=== PATIENT | male | born 1975 | race American Indian/Alaskan Native ===

== ENCOUNTER 2017-08-21 18:23 | Emergency (ER) | payer OTHER ==
[2017-08-21 18:44] VITALS: BMI 20.3
[2017-08-21 18:47] VITALS: RESP 18
[2017-08-21] MEDS ORDERED: Multivitamin (MVI) 10 ML, Thiamine 100 MG, Folic Acid 1 MG in Dextrose 5% In Water 1,00... IV ONE (19:23)
--- NOTE | 2017-08-21 19:23 | ED PDOC ---
"Arrival/HPI - General Chief Complaint: Alcohol Ingestion Time Seen by Provider: 08/21/17 19:19 Historian: Patient - History of Present Illness Narrative History of Present Illness (Text): 08/21/17 19:21 39 y/o male, limited HPI can be obtained, as the patient is agitated, +etoh on breath, biba, here at the ER which he was bring to the ER for etoh intoxication. Pt. is here in the ER, agitated, walking around and cursing at the staff, stated that he is fine, doesn't want to stay but with etoh on breath , no chest pain or shortness, no discomfort, no other medical or psychological complaints. Past Medical History - Provider Review Nursing Documentation Reviewed: Yes - Infectious Disease Hx of Infectious Diseases: None - Cardiac Hx Hypertension: Yes - Psychiatric Hx Substance Use: No Family/Social History - Physician Review Nursing Documentation Reviewed: Yes Family/Social History: Unknown Family HX Smoking Status: Current Some Days Smoker Hx Alcohol Use: Yes Hx Substance Use: No Allergies/Home Meds Allergies/Adverse Reactions: Allergies No Known Allergies Allergy (Verified 08/21/17 18:44) Home Medications: Home Meds Medication Instructions Recorded Confirmed Unobtainable 08/21/17 08/21/17 Review of Systems - Review of Systems Systems not reviewed;Unavailable: Other (intoxicated and uncooperative.) Physical Exam - Physical Exam Physical Exam Limitations: Intoxication Vital Signs Reviewed: Yes Vital Signs Temp Pulse Resp BP Pulse Ox 08/21/17 23:30 72 18 145/87 99 08/21/17 18:23 98.6 F 110 H 18 131/80 98 Temperature: Afebrile Blood Pressure: Normal Pulse: Tachycardic Respiratory Rate: Normal Appearance: Positive for: Well-Appearing, Non-Toxic, Comfortable - Systems Exam Head: Present: Atraumatic, Normocephalic Pupils: Present: PERRL, Other (+pinpoint pupils) Extroacular Muscles: Present: EOMI Conjunctiva: Present: Normal Mouth: Present: Moist Mucous Membranes Neck: Present: Normal Range of Motion, Lymphadenopathy, Trachea Midline. No: Meningeal Signs, MIDLINE TENDERNESS, Paraspinal Tenderness Respiratory/Chest: Present: Clear to Auscultation, Good Air Exchange. No: Respiratory Distress, Accessory Muscle Use, Wheezes, Decreased Breath Sounds, Rales, Retracting, Rhonchi, Tachypneic, Tender to Palpation Cardiovascular: Present: Regular Rate and Rhythm, Normal S1, S2. No: Murmurs Abdomen: Present: Normal Bowel Sounds. No: Tenderness, Distention, Peritoneal Signs, Rebound, Guarding Back: Present: Normal Inspection. No: CVA Tenderness, Midline Tenderness, Paraspinal Tenderness Upper Extremity: Present: Normal Inspection, Normal ROM. No: Cyanosis, Edema, Deformity Lower Extremity: Present: Normal Inspection, Normal ROM. No: Edema, Deformity Neurological: Present: GCS=15, Speech Normal, Motor Func Grossly Intact Skin: Present: Warm, Dry, Normal Color. No: Rashes Psychiatric: Present: Alert, Oriented x 3, Normal Insight, Normal Concentration Medical Decision Making ED Course and Treatment: 08/21/17 19:22 -Pt. is agitated, attacking ER staffs, ativan and haldol ordered. -Labs/CT head -Observe and reassess 08/22/17 00:50 -Pt. was agitated, therefore geodon IM ordered, sleeping now, easily arousable. -Labs are non-significant -Pending CT head. 08/22/17 02:23 -CT head show no acute findings. 08/22/17 03:21 -Case discussed and endorsed to the current ER attending Dr. Delio Olmos for the follow up care including any pending labs/radiology studies for the final dispo for the patient. - Lab Interpretations Lab Results: 08/21/17 21:41 08/21/17 21:41 Lab Results 08/21/17 21:41: WBC 7.4, RBC 4.48, Hgb 13.5 L, Hct 40.3 L, MCV 90.0, MCH 30.1, MCHC 33.5, RDW 15.8 H, Plt Count 319, MPV 11.1 H, Gran % 64.6, Lymph % (Auto) 27.0, [place] % (Auto) 6.9 H, Eos % (Auto) 0.8 L, Baso % (Auto) 0.7, Gran # 4.76, Lymph # 2.0, [place] # 0.5, Eos # 0.1, Baso # 0.05 08/21/17 21:41: Sodium 149 H, Potassium 4.1, Chloride 108 H, Carbon Dioxide 25, Anion Gap 21 H, BUN 7, Creatinine 0.8, Est GFR ( Amer) > 60, Est GFR (Non -Af Amer) > 60, Random Glucose 96, Calcium 9.6, Magnesium 2.2, Total Bilirubin 0.3, AST 52, ALT 80 H, Alkaline Phosphatase 94, Total Creatine Kinase 420 H, CK- MB (CK-2) 2.2, CK-MB (CK-2) % Cancelled, Total Protein 8.8 H, Albumin 4.9 H, Globulin 3.9, Albumin/Globulin Ratio 1.3 - RAD Interpretation Radiology Orders: 08/21/17 19:23 HEAD W/O CONTRAST [CT] Stat FINDINGS: Brain: Ventricles are normal in size and configuration. There is no midline shift. There is mild prominence of sulci and gyri. There are no intra-axial or extra-axial mass lesions or areas of hemorrhage. There are no abnormal fluid collections. Garcia-white differentiation is maintained. Ventricles: See above. Bones: Cranial vault is intact. Soft tissues: unremarkable Sinuses: There is mucoperiosteal thickening in the left maxillary sinus Ears and mastoids: Middle ears and mastoids are unremarkable Orbits: Orbital contents are unremarkable. IMPRESSION: No acute intracranial abnormality Thank you for allowing us to participate in the care of your patient. JOSHUA MORENO | Final Radiology Report CONFIDENTIALITY STATEMENT This report is intended only for use by the referring physician, and only in accordance with law. If you received this in error, call [phone]. Page 2 of 2 Dictated and Authenticated by: Armida Gastelum MD 08/22/2017 2:03 AM Eastern Time ([place] & [place]) Strip Cutter: Radiologist - Medication Orders Current Medication Orders: Discontinued Medications Haloperidol Lactate (Haldol) 5 mg IM STAT STA PRN Reason: Protocol Stop: 08/21/17 19:20 Last Admin: 08/21/17 19:53 Dose: 5 mg IM Administration Charges Document 08/21/17 19:53 SS (Rec: 08/21/17 19:53 SS [id number]) Injection Site MAR Injection Site Left Deltoid Charges for Administration # of IM Administrations 1 Multivitamins/Vitamin C 10 ml/Thiamine HCl 100 mg/ Folic Acid 1 mg/ Dextrose 1, 011.2 mls @ 1,000 mls/hr IV .Q1H1M ONE Stop: 08/21/17 20:23 Last Admin: 08/21/17 21:12 Dose: 1,000 mls/hr eMAR Start Stop Document 08/21/17 21:12 SS (Rec: 08/21/17 21:13 SS [id number]) Intravenous Solution Start Date 08/21/17 Start Time 21:12 End Date 08/21/17 End time 22:13 Total Infusion Time 61 Lorazepam (Ativan) 2 mg IM ONCE ONE PRN Reason: Protocol Stop: 08/21/17 19:20 Last Admin: 08/21/17 19:53 Dose: 2 mg IM Administration Charges Document 08/21/17 19:53 SS (Rec: 08/21/17 19:53 SS [id number]) Injection Site MAR Injection Site Left Deltoid Charges for Administration # of IM Administrations 1 Ziprasidone (Geodon Inj) 20 mg IM STAT STA PRN Reason: Protocol Stop: 08/21/17 23:26 Last Admin: 08/21/17 23:39 Dose: 20 mg IM Administration Charges Document 08/21/17 23:39 ND (Rec: 08/21/17 23:39 ND [facility] [id number]) Injection Site MAR Injection Site Left Deltoid Charges for Administration # of IM Administrations 1 - PA / STREET ENGINEER / Resident Statement MD/DO has reviewed & agrees with the documentation as recorded. Disposition/Present on Arrival - Present on Arrival Any Indicators Present on Arrival: No History of DVT/PE: No History of Uncontrolled Diabetes: No Urinary Catheter: No History of Decub. Ulcer: No History Surgical Site Infection Following: None - Disposition Have Diagnosis and Disposition been Completed?: Yes Diagnosis: Alcohol intoxication Disposition Time: 03:22 Patient Problems: Current Active Problems Problem Status Onset Alcohol intoxication Acute Forms: [employer] ([employer])"
[2017-08-21 21:48] LABS: BASO # 0.05 K/mm3 (0.0-2.0); BASO % 0.7 % (0.0-3.0); EOS # 0.1 (0.0-0.7); EOS % 0.8 % (1.5-5.0); GRAN # 4.76 (1.4-6.5); GRAN % 64.6 % (50.0-68.0); HEMOGLOBIN 13.5 g/dL (14.0-18.0); MEAN CORPUSCULAR HEMOGLOBIN 30.1 pg (25.0-35.0); MEAN CORPUSCULAR HGB CONC 33.5 g/dl (31.0-37.0); MEAN PLATELET VOLUME 11.1 fl (7.0-11.0); MONO # 0.5 (0.1-0.6); MONO % 6.9 % (1.0-6.0); RBC 4.48 10^6/uL (3.5-6.1); RED CELL DISTRIBUTION WIDTH 15.8 % (11.5-14.5); WHITE BLOOD COUNT 7.4 10^3/ul (4.5-11.0)
[2017-08-21 22:17] LABS: ALB/GLOB RATIO 1.3 (1.1-1.8); ALBUMIN 4.9 g/dL (3.0-4.8); ALT/SGPT 80 U/L (7-56); AST/SGOT 52 U/L (17-59); BLOOD UREA NITROGEN 7 mg/dL (7-21); CALCIUM 9.6 mg/dL (8.4-10.5); GFR AFRICAN-AMERICAN > 60; GFR NON-AFRICAN AMERICAN > 60; MAGNESIUM 2.2 mg/dL (1.7-2.2)
[2017-08-21 22:31] LABS: CK-MB 2.2 ng/mL (0.0-3.6)
--- NOTE | 2017-08-22 02:03 | CT ---
EXAM: CT Head Without Intravenous Contrast EXAM DATE/TIME: 08/21/2017 7:23 PM CLINICAL HISTORY: 42 years old, male; Signs and symptoms; Syncope and collapse; Additional info: ETOH, agitated, fall? TECHNIQUE: Axial computed tomography images of the head/brain without intravenous contrast. All CT scans at this facility use one or more dose reduction techniques, viz.: automated exposure control; ma/kV adjustment per patient size (including targeted exams where dose is matched to indication; i.e. head); or iterative reconstruction technique. Coronal and sagittal reformatted images were created and reviewed. COMPARISON: There are no prior studies for comparison. FINDINGS: Brain: Ventricles are normal in size and configuration. There is no midline shift. There is mild prominence of sulci and gyri. There are no intra-axial or extra-axial mass lesions or areas of hemorrhage. There are no abnormal fluid collections. Garcia-white differentiation is maintained. Ventricles: See above. Bones: Cranial vault is intact. Soft tissues: unremarkable Sinuses: There is mucoperiosteal thickening in the left maxillary sinus Ears and mastoids: Middle ears and mastoids are unremarkable Orbits: Orbital contents are unremarkable. IMPRESSION: No acute intracranial abnormality
[2017-08-22 08:22] VITALS: BP 123/77; PULSE 92; TEMP 98.5; O2SAT 97
--- NOTE | 2017-08-22 09:20 | ED PDOC ---
Physical Exam Vital Signs Reviewed: Yes Vital Signs Temp Pulse Resp BP Pulse Ox 08/22/17 08:20 98.5 F 92 H 18 123/77 97 08/22/17 06:39 100 H 18 125/71 95 08/21/17 23:30 72 18 145/87 99 08/21/17 18:23 98.6 F 110 H 18 131/80 98 Temperature: Afebrile Blood Pressure: Normal Pulse: Regular Respiratory Rate: Normal Appearance: Positive for: Well-Appearing Pain Distress: None Mental Status: Positive for: Alert and Oriented X 3 - Systems Exam Psychiatric: Present: Alert, Oriented x 3. No: Suicidal Ideation, Homicidal Ideation, Other (no ataxia) Medical Decision Making ED Course and Treatment: 08/22/17 09:02 Patient signed out to me by Dr. Olmos. Reevaluation for sobriety. Patient denies any suicidal/homicidal ideation. Patient currently eating at bedside and shows no signs of vomiting. AAOx3. No slurred speech. No ataxia. Denies SI or HI. Needs a work note which was given. - Lab Interpretations Lab Results: 08/21/17 21:41 08/21/17 21:41 Lab Results 08/21/17 21:41: WBC 7.4, RBC 4.48, Hgb 13.5 L, Hct 40.3 L, MCV 90.0, MCH 30.1, MCHC 33.5, RDW 15.8 H, Plt Count 319, MPV 11.1 H, Gran % 64.6, Lymph % (Auto) 27.0, [place] % (Auto) 6.9 H, Eos % (Auto) 0.8 L, Baso % (Auto) 0.7, Gran # 4.76, Lymph # 2.0, [place] # 0.5, Eos # 0.1, Baso # 0.05 08/21/17 21:41: Sodium 149 H, Potassium 4.1, Chloride 108 H, Carbon Dioxide 25, Anion Gap 21 H, BUN 7, Creatinine 0.8, Est GFR ( Amer) > 60, Est GFR (Non -Af Amer) > 60, Random Glucose 96, Calcium 9.6, Magnesium 2.2, Total Bilirubin 0.3, AST 52, ALT 80 H, Alkaline Phosphatase 94, Total Creatine Kinase 420 H, CK- MB (CK-2) 2.2, CK-MB (CK-2) % Cancelled, Total Protein 8.8 H, Albumin 4.9 H, Globulin 3.9, Albumin/Globulin Ratio 1.3 - RAD Interpretation Radiology Orders: 08/21/17 19:23 HEAD W/O CONTRAST [CT] Stat - Medication Orders Current Medication Orders: Discontinued Medications Haloperidol Lactate (Haldol) 5 mg IM STAT STA PRN Reason: Protocol Stop: 08/21/17 19:20 Last Admin: 08/21/17 19:53 Dose: 5 mg IM Administration Charges Document 08/21/17 19:53 SS (Rec: 08/21/17 19:53 SS [id number]) Injection Site MAR Injection Site Left Deltoid Charges for Administration # of IM Administrations 1 Multivitamins/Vitamin C 10 ml/Thiamine HCl 100 mg/ Folic Acid 1 mg/ Dextrose 1, 011.2 mls @ 1,000 mls/hr IV .Q1H1M ONE Stop: 08/21/17 20:23 Last Admin: 08/21/17 21:12 Dose: 1,000 mls/hr eMAR Start Stop Document 08/21/17 21:12 SS (Rec: 08/21/17 21:13 SS [id number]) Intravenous Solution Start Date 08/21/17 Start Time 21:12 End Date 08/21/17 End time 22:13 Total Infusion Time 61 Lorazepam (Ativan) 2 mg IM ONCE ONE PRN Reason: Protocol Stop: 08/21/17 19:20 Last Admin: 08/21/17 19:53 Dose: 2 mg IM Administration Charges Document 08/21/17 19:53 SS (Rec: 08/21/17 19:53 SS [id number]) Injection Site MAR Injection Site Left Deltoid Charges for Administration # of IM Administrations 1 Ziprasidone (Geodon Inj) 20 mg IM STAT STA PRN Reason: Protocol Stop: 08/21/17 23:26 Last Admin: 08/21/17 23:39 Dose: 20 mg IM Administration Charges Document 08/21/17 23:39 ND (Rec: 08/21/17 23:39 ND [id number]) Injection Site MAR Injection Site Left Deltoid Charges for Administration # of IM Administrations 1 - Scribe Statement The provider has reviewed the documentation as recorded by the Jewels Rowe Provider Scribe Attestation: All medical record entries made by the Scribe were at my direction and personally dictated by me. I have reviewed the chart and agree that the record accurately reflects my personal performance of the history, physical exam, medical decision making, and the department course for this patient. I have also personally directed, reviewed, and agree with the discharge instructions and disposition. Disposition/Present on Arrival - Present on Arrival Any Indicators Present on Arrival: No History of DVT/PE: No History of Uncontrolled Diabetes: No Urinary Catheter: No History of Decub. Ulcer: No History Surgical Site Infection Following: None - Disposition Have Diagnosis and Disposition been Completed?: Yes Diagnosis: Alcohol intoxication Disposition: HOME/ ROUTINE Disposition Time: 09:00 Patient Plan: Discharge Condition: IMPROVED Discharge Instructions (ExitCare): Alcohol Intoxication (ED) Additional Instructions: Mr Johnsray, thank you for letting us take care of you today. Your provider was Dr. Cade. You were treated for Alcohol Intoxication. The emergency medical care you received today was directed at your acute symptoms. If you were prescribed any medication, please fill it and take as directed. It may take several days for your symptoms to resolve. Return to the Emergency Department if your symptoms worsen, do not improve, or if you have any other problems. Please contact your doctor or call one of the physicians/clinics you have been referred to that are listed on the Patient Visit Information form that is included in your discharge packet. Bring any paperwork you were given at discharge with you along with any medications you are taking to your follow up visit. Our treatment cannot replace ongoing medical care by a primary care provider (PCP) outside of the emergency department. Thank you for allowing the [facility] team to be part of your care today. If you had an X-Ray or CT scan: A Radiologist will review the ED reading if any change in treatment is needed we will contact you. If you had a blood, urine, or wound culture: It will take several days for the results, if any change in treatment is needed we will contact you. If you had an STI test: It will take 48 hours for the results. Please call after 1 week if you have not heard back. Referrals: [facility] at [facility] [place] [Outside] - Follow up with primary Forms: [employer] ([place]), WORK NOTE
== END 2017-08-22 09:28 | disposition home or self-care (01) ==
LOC: EDBD 18:23 → ED 18:23
DX: F10.129 Alcohol abuse with intoxication, unspecified (principal); I10 Essential (primary) hypertension
CPT/HCPCS: 70450; 80053; 82550; 82553; 83735; 85025; 96360; 96372; 99284; J1630; J2060; J3411; J3486; J7070